=== PATIENT | male | born 1930 | race Caucasian/White ===

== ENCOUNTER 2016-09-08 14:10 | Emergency (ER) | payer OTHER, MEDICAID ==
[~2016-09-08] VITALS: Ht 162.6 cm; Wt 71.2 kg
[~2016-09-08 14:10] MED LIST: ASPIRIN81 M3 PO; DSS100 M1 PO; FERROUS SULFAT325 M1 PO; LEVOTHYROXINE0.05 M1 PO; METFORMIN500 MG PO; METOPROLOL50 MG PO; OXYBUTYNIN5 M1 PO; PROTONIX40 M1 PO; SIMVASTATIN40 M1 PO; VICODIN 5/500 M1 TAB PO; XANAX1 M1 PO
[2016-09-08 14:17] VITALS: BP 119/66
[2016-09-08] MEDS ORDERED: AMARYL2 MG PO (14:30)
--- NOTE | 2016-09-08 16:32 | NUR ---
Patient transferred to bed 1 via wheelchair by tech. RN evaluating patient at bedside.
--- NOTE | 2016-09-08 16:37 | NUR ---
86/M BIB FAMILY FOR HIGH BLOOD SUGAR, WEAKNESS X TODAY AND RIGHT SIDED NECK PAIN 1 MONTH. PT DENIES N/V/D; SKIN IS PINK/WARM/DRY; AAOX4 WITH EVEN AND STEADY GAIT; LUNGS CLEAR BL; HR EVEN AND REGULAR; PT DENIES ANY FEVER, CP, SOB, OR COUGH AT THIS TIME; PATIENT STATES PAIN OF 5/10 AT THIS TIME; VSS; PATIENT POSITIONED FOR COMFORT; HOB ELEVATED; BEDRAILS UP X2; BED DOWN. ER MD MADE AWARE OF PT STATUS.
[2016-09-08] MEDS ORDERED: NACL 0.9% 1,000 ML IV ONE ×2 (17:35→18:35)
[2016-09-08] MEDS ORDERED: INSULIN HUMAN REGULAR 100 UNITS/ML 10 ML VIAL IVP ONE (17:35)
--- NOTE | 2016-09-08 19:20 | NUR ---
Pt report given to VIOLETTA THOMAS. Transfer of care at this time.
[2016-09-08 19:53] VITALS: BP 164/83
--- NOTE | 2016-09-08 19:53 | NUR ---
IV removed, catheter intact and site benign. Applied folded 4x4 gauze and tape to stop bleeding.
--- NOTE | 2016-09-08 19:53 | NUR ---
Patient discharged with v/s stable. Written and verbal after care instructions given and explained. Patient verbalized understanding. Ambulatory with steady gait. All questions addressed prior to discharge. Advised to follow up with PMD.
== END 2016-09-08 19:53 | disposition home or self-care (01) ==
LOC: MED 14:10
DX: E11.65 Type 2 diabetes mellitus with hyperglycemia (principal); R53.81 Other malaise; I10 Essential (primary) hypertension; Z86.73 Personal history of transient ischemic attack (TIA), and cerebral infarction without residual deficits; Z79.82 Long term (current) use of aspirin; Z79.899 Other long term (current) drug therapy
CPT/HCPCS: 36415; 71010; 80053; 82948; 84484; 85025; 93005; 96361; 96374; 99285; J1815; J7030; Q0092

== ENCOUNTER 2016-11-27 16:17 | Inpatient (IN) | payer OTHER, MEDICAID ==
[~2016-11-27] VITALS: Ht 154.9 cm; Wt 76.2 kg
[~2016-11-27 16:17] MED LIST changes: +AMARYL2 MG PO
[2016-11-27 16:26] VITALS: BP 134/66
--- NOTE | 2016-11-27 17:00 | NUR ---
pt required wheel chair assistance out to car---pt unable to get out of car himself---son pulled pt out--pt appeared very pale mildly diaphoretic weak-unable to stand or sit upright . PT STATEd, felt tired--taken to triage by Karen THOMAS . DENIES N/V/D; SKIN IS pale diaphoretic lethargic oriented to name only--- HR EVEN AND tachy; PT DENIES ANY FEVER, CP, SOB, OR COUGH AT THIS TIME; PATIENT STATES PAIN OF 0/10 AT THIS TIME; VSS; PATIENT POSITIONED FOR COMFORT; HOB ELEVATED; BEDRAILS UP X2; BED DOWN. ER MD MADE AWARE OF PT STATUS.
--- NOTE | 2016-11-27 17:04 | NUR ---
PT WHEELCHAIR ASSISTED TO BED 4 AT THIS TIME.
[2016-11-27] MEDS ORDERED: NACL 0.9% 1,000 ML IV ONE (17:40)
[2016-11-27] MEDS ORDERED: NACL 0.9% 500 ML IV ONE (17:40)
[2016-11-27] MEDS ORDERED: MECLIZINE 25 MG TAB PO ONE (17:40)
[2016-11-27] MEDS ORDERED: ACETAMINOPHEN 325 MG TAB PO PRN (19:00)
[2016-11-27] MEDS ORDERED: HYDROcodone/APAP 5/325 MG 1 TAB TAB PO PRN (19:00)
[2016-11-27] MEDS ORDERED: ONDANSETRON 4 MG/2 ML VIAL IVP PRN (19:00)
[2016-11-27] MEDS ORDERED: LORazepam 1 MG TAB PO PRN (19:00)
[2016-11-27] MEDS ORDERED: LEVOFLOXACIN 500 MG/D5W PREMIX 100 ML IV SCH (19:05)
--- NOTE | 2016-11-27 19:06 | NUR ---
pt has maintained conversation with me and his son for lenghty periods--remained a/o x4
--- NOTE | 2016-11-27 19:06 | NUR ---
urine sample dip reported to
[2016-11-27] MEDS ORDERED: DEXTROSE 50% 50 ML SYR IVP PRN (19:15)
[2016-11-27] MEDS ORDERED: MECLIZINE 25 MG TAB PO PRN ×2 (19:15)
--- NOTE | 2016-11-27 19:15 | NUR ---
report received from hortencia, rn
[2016-11-27] MEDS ORDERED: LEVOFLOXACIN 500 MG/D5W PREMIX 100 ML IV ONE (19:21)
[2016-11-27 20:20] VITALS: BP 134/80
[2016-11-27] MEDS: NACL 0.9% 1,000 ML IV SCH (20:20)
--- NOTE | 2016-11-27 20:20 | NUR ---
RECEIVED PT FROM ER VIA KARTHIK, INITIAL ASSESSMENT STARTED, PT IS AAOX4, SLURRED SPEECH NOTED, DENIES PAIN, NO S/S OF SOB/DISTRESS, BREATHING EVEN AND UNLABORED, CLEAR LUNG SOUNDS, ON RA, DENIES CHEST PAIN, SR ON TELE MONITOR, SOFT ABDOMINAL WITH ACTIVE BOWEL SOUNDS, IV SITE TO LEFT FOREARM 20GA, PATENT AND INTACT, RUNNING NS. CONTINENT WITH B&B'S, ABLE TO MOVE ALL EXTREMITIES, BUT STATED GENERALIZED WEAKNESS. AFEBRILE, SKIN IS WARM AND DRY TO TOUCH, NO OPEN WOUND PRESENT. FAMILY MEMBERS AT BEDSIDE, EXPLAINED PLAN OF CARE TO PATIENT AND FAMILY, VERBALIZED UNDERSTANDING, PLACED PATIENT ON SAFE PRECAUTION WITH BED IN LOW POSITION, CALL LIGHT WITHIN REACH. VSS AT THIS TIME, WILL CONTINUE TO MONITOR.
--- NOTE | 2016-11-27 20:20 | NUR ---
Patient will be admitted to care of dr jon. Admited to tele/icu 3 overflow. Will go to room icu 3. Belongings list completed. Report to myron christiansen.
[2016-11-27] MEDS: OXYBUTYNIN 5 MG TAB PO SCH (21:00)
[2016-11-27] MEDS ORDERED: metFORMIN 500 MG TAB PO SCH (21:00)
--- NOTE | 2016-11-27 21:00 | NUR ---
ACCU CHECK PERFORMED WITH RESULT OF 227MG/DL, 4 UNITS HUMALOG GIVEN ORDERED, PT TOLERATED WELL.
[2016-11-27] MEDS: BLOOD GLUCOSE MONITORING 1 DEV DEV FS SCH (21:40)
[2016-11-27] MEDS: METOPROLOL 50 MG TAB PO SCH (21:52)
[2016-11-27] MEDS: INSULIN LISPRO SLIDING SCALE 100 UNITS/ML VIAL SUBQ PRN (21:54)
[2016-11-28] VITALS: BP 111/56
--- NOTE | 2016-11-28 | NUR ---
PT IS ASLEEP QUIETLY IN BED, VSS.
[2016-11-28 04:00] VITALS: BP 143/68
--- NOTE | 2016-11-28 04:00 | NUR ---
PT IS ASLEEP IN BED, NO CHANGE OF CONDITION AT THIS TIME, VSS.
[2016-11-28] MEDS: GLIMEPIRIDE 2 MG TAB PO SCH (06:30)
[2016-11-28] MEDS: NACL 0.9% 1,000 ML IV SCH (07:00)
--- NOTE | 2016-11-28 07:15 | NUR ---
REPORT GIVEN TO WILLIAM ROUSSEAU. FOR CONTINUE OF CARE, PT IS IN STABLE CONDITION AT THIS TIME.
[2016-11-28] MEDS: BLOOD GLUCOSE MONITORING 1 DEV DEV FS SCH ×4 (07:22→21:14)
--- NOTE | 2016-11-28 07:30 | NUR ---
REPORT GIVEN TO HANSEL MCCONNELL.
--- NOTE | 2016-11-28 07:45 | NUR ---
PT ARRIVED FROM ICU, RECEIVED REPORT FROM ICU NURSE. PT IS AAOX4 [place]KIST[place] SPEAKING. ON ROOM AIR, IV TO LEFT WRIST 20G INFUSING WELL. SKIN INTACT. INITIAL ASSESSMENT COMPLETED. ORIENTED PT TO ROOM AND ENVIRONMENT. ALL SAFETY PRECAUTIONS MET. ALL NEEDS ME. CALL LIGHT WITHIN REACH. WILL CONTINUE TO MONITOR.
--- NOTE | 2016-11-28 07:45 | NUR ---
PT AWAKE, ALERT, AND ORIENTED. NO S/S OF RESPIRATORY DISTRESS NOTED. TRANSFERRED PT TO TELE. ALL PERSONAL BELONGINGS WITH PT.
[2016-11-28 08:00] VITALS: BP 145/77
[2016-11-28] MEDS: ASPIRIN 81 MG TAB.CHEW PO SCH (09:02)
[2016-11-28] MEDS: DOCUSATE SODIUM 100 MG GELCAP PO SCH (09:02)
[2016-11-28] MEDS: OXYBUTYNIN 5 MG TAB PO SCH ×2 (09:03→21:14)
[2016-11-28] MEDS: LEVOTHYROXINE 0.05 MG TAB PO SCH (09:03)
[2016-11-28] MEDS: SIMVASTATIN 40 MG TAB PO SCH (09:03)
[2016-11-28] MEDS: METOPROLOL 50 MG TAB PO SCH ×2 (09:03→21:13)
--- NOTE | 2016-11-28 09:04 | NUR ---
DUE MEDICATIONS GIVEN. PT CURRENTLY RESTING IN BED. ALL NEEDS MET. CALL LIGHT WITHIN REACH. WILL CONTINUE TO MONITOR.
--- NOTE | 2016-11-28 10:20 | NUR ---
CM NOTE PER DIETETIC AIDE ROXANA EXT [phone], REVIEWS SHOULD ONLY BE SENT TO [facility]. INITIAL REVIEW SENT TO [facility] FAX# [phone] PH# [phone]
--- NOTE | 2016-11-28 10:29 | NUR ---
PATIENT HAS BEEN SCREENED AND CATEGORIZED HIGH NUTRITION RISK. PATIENT WILL BE SEEN WITHIN 1-2 DAYS OF ADMISSION. 11/28/16-11/29/[address]
--- NOTE | 2016-11-28 11:45 | NUR ---
PT CURRENTLY RESTING IN BED. ALL NEEDS MET. CALL LIGHT WITHIN REACH. WILL CONTINUE TO MONITOR.
[2016-11-28 12:00] VITALS: BP 142/69
[2016-11-28] MEDS: INSULIN LISPRO SLIDING SCALE 100 UNITS/ML VIAL SUBQ PRN ×2 (12:24→21:18)
--- NOTE | 2016-11-28 14:14 | NUR ---
11/28/16 RD INITIAL ASSESSMENT COMPLETED PLEASE REFER TO NUTRITION ASSESSMENT UNDER CARE ACTIVITY FOR ESTIMATED NUTRITIONAL NEEDS. 1. CONTINUE CARDIAC DIET 2. RD TO FOLLOW-UP 3-5 DAYS; MODERATE RISK ARAMIS BRAMBILA RD
--- NOTE | 2016-11-28 14:25 | NUR ---
PT CURRENTLY SLEEPING, AT BEDSIDE, CALL LIGHT WITHIN REACH. WILL CONTINUE TO MONITOR.
--- NOTE | 2016-11-28 14:45 | NUR ---
PER SAURAV GARCIA AT [facility] [phone] PT SHOULD BE ASSIGNED TO [facility] AND SHE HAS NOTIFIED DR MORLEY TO TAKE OVER PTS CARE TOMORROW WHEN HE ROUNDS.
[2016-11-28 16:00] VITALS: BP 127/66
--- NOTE | 2016-11-28 17:25 | NUR ---
PT CURRENTLY AWAKE. VISITING WITH FAMILY MEMBERS. ALL NEEDS MET. CALL LIGHT WITHIN REACH. WILL CONTINUE TO MONITOR.
--- NOTE | 2016-11-28 19:34 | NUR ---
ENDORSED PLAN OF CARE TO NIGHT NURSE, PT IN STABLE CONDITION .
--- NOTE | 2016-11-28 19:36 | NUR ---
RECEIVED PT IN STABLE CONDITION FROM WILLIAM WILL, NO SOB, NO SIGNS OF DISTRESS. VS STABLE ON ROOM AIR. IV TO LT WRIST 20G PATENT, ASYMPTOMATIC, INTACT, IVF RUNNING. PT IS AOX4, KYRGY[place] SPEAKING, AMBULATES WITH ASSIST. SKIN IS INTACT. FAMILY AT BEDSIDE. PT DENIES PAIN AT THIS TIME. PLAN OF CARE DISCUSSED WITH PT. SAFETY MEASURES IN PLACE. CALL LIGHT WITHIN REACH. WILL CONTINUE TO MONITOR.
[2016-11-28 20:00] VITALS: BP 141/74
--- NOTE | 2016-11-28 21:18 | NUR ---
BLOOD SUGAR 219, ADMINISTERED INSULIN PER MD ORDER. PT TOLERATED DUE MEDS WELL. NO SOB, NO SIGNS OF DISTRESS. PT DENIES PAIN AT THIS TIME. IV SITE ASYMPTOMATIC, INTACT, PATENT, IVF RUNNING. PLAN OF CARE DISCUSSED WITH PT. SAFETY MEASURES IN PLACE. CALL LIGHT WITHIN REACH. WILL CONTINUE TO MONITOR.
[2016-11-29] VITALS: BP 145/58
--- NOTE | 2016-11-29 | NUR ---
VS STABLE OB ROOM AIR. PT DENIES PAIN AT THIS TIME. IV SITE ASYMPTOMATIC, INTACT, PATENT, IVF RUNNING. PLAN OF CARE DISCUSSED WITH PT. SAFETY MEASURES IN PLACE. CALL LIGHT WITHIN REACH. WILL CONTINUE TO MONITOR.
--- NOTE | 2016-11-29 02:33 | NUR ---
PT ASLEEP IN BED. NO SOB, NO SIGNS OF DISTRESS. IV SITE ASYMPTOMATIC, INTACT, PATENT, IVF RUNNING. SAFETY MEASURES IN PLACE. CALL LIGHT WITHIN REACH. WILL CONTINUE TO MONITOR.
[2016-11-29 04:00] VITALS: BP 136/56
--- NOTE | 2016-11-29 04:00 | NUR ---
VS STABLE ON ROOM AIR. PT DENIES PAIN AT THIS TIME. IV SITE ASYMPTOMATIC, INTACT, PATENT, IVF RUNNING. PLAN OF CARE DISCUSSED WITH PT. SAFETY MEASURES IN PLACE. CALL LIGHT WITHIN REACH. WILL CONTINUE TO MONITOR
[2016-11-29] MEDS: NACL 0.9% 1,000 ML IV SCH (06:00)
[2016-11-29] MEDS: GLIMEPIRIDE 2 MG TAB PO SCH (06:30)
--- NOTE | 2016-11-29 06:30 | NUR ---
BLOOD SUGAR 105, NO INSULIN NEEDED, HELD AMARYL DUE TO DECREASED GLUCOSE AND POOR APPETITE. NO SOB, NO SIGNS OF DISTRESS. PT DENIES PAIN AT THIS TIME. IV SITE ASYMPTOMATIC, INTACT, PATENT, IVF RUNNING. PLAN OF CARE DISCUSSED WITH PT. SAFETY MEASURES IN PLACE. CALL LIGHT WITHIN REACH. WILL CONTINUE TO MONITOR
[2016-11-29] MEDS: BLOOD GLUCOSE MONITORING 1 DEV DEV FS SCH ×2 (06:35→11:38)
--- NOTE | 2016-11-29 06:55 | NUR ---
MD MACKENZIE VERBALLY MADE AWARE THAT PT NEEDS BLOOD SUGAR CHECKS, INSULIN, AND D50 ORDERS, ALSO MADE AWARE THAT I WAS UNABLE TO MIX AND GIVE POTASSIUM IV ORDER, AND THAT PT DOES NOT HAVE HIS DENTURES AND NEEDS A SOFT DIET. TO SEE PT. Addendum: 11/29/16 at 0658 by Tatiana Cintron RN ENTERED FOR WRONG PT.
--- NOTE | 2016-11-29 07:15 | NUR ---
ENDORSED PT IN STABLE CONDITION TO WILLIAM WILL. ALL NEEDS HAVE BEEN MET AT THIS TIME.
--- NOTE | 2016-11-29 07:15 | NUR ---
RECEIVED REPORT FROM NIGHT NURSE. PT IS AAOX4 MAORI SPEAKING. ON ROOM AIR, IV TO LEFT WRIST 20G INFUSING WELL. SKIN INTACT. INITIAL ASSESSMENT COMPLETED. ALL SAFETY PRECAUTIONS MET. ALL NEEDS ME. CALL LIGHT WITHIN REACH. WILL CONTINUE TO MONITOR.
[2016-11-29 08:00] VITALS: BP 136/70
[2016-11-29] MEDS ORDERED: LEVAQUIN750 MG PO (09:10)
[2016-11-29] MEDS: ASPIRIN 81 MG TAB.CHEW PO SCH (09:12)
[2016-11-29] MEDS: LEVOTHYROXINE 0.05 MG TAB PO SCH (09:13)
[2016-11-29] MEDS: SIMVASTATIN 40 MG TAB PO SCH (09:13)
[2016-11-29] MEDS: OXYBUTYNIN 5 MG TAB PO SCH (09:13)
[2016-11-29] MEDS: METOPROLOL 50 MG TAB PO SCH (09:13)
[2016-11-29] MEDS: DOCUSATE SODIUM 100 MG GELCAP PO SCH (09:13)
--- NOTE | 2016-11-29 09:15 | NUR ---
DUE MEDICATIONS GIVEN, PT CURRENTLY WORKING WIT PT. ALL NEEDS MET. WILL CONTINUE TO MONITOR.
--- NOTE | 2016-11-29 10:21 | NUR ---
CM NOTE CONCURRENT REVIEW SENT TO [facility] FAX# [phone] PH# [phone]
--- NOTE | 2016-11-29 11:45 | NUR ---
DISCUSSED DISCHARGE PLAN WITH PT, PT VERBALIZED UNDERSTANDING.
[2016-11-29 12:00] VITALS: BP 138/78
--- NOTE | 2016-11-29 12:05 | NUR ---
NOTIFIED PT'S LAKIA RIVERS OF PT DISCHARGE, MRS RIVERS VERBALIZED UNDERSTANDING AND STATES THAT SOMEONE SHOULD BE IN TO COOK ROOM SUPERVISOR PT BY 1400.
--- NOTE | 2016-11-29 14:15 | NUR ---
PT SIGNED ALL DISCHARGE, IV REMOVED TIP INTACT, DISCHARGE EDUCATION GIVEN, PRESCRIPTION GIVEN, EDUCATED PT AND FAMILY ON NEW MEDICATION, PT VERBALIZED UNDERSTANDING, ALL PERSONAL BELONGINGS WITH PT, DAUGHTER WILL BE TAKING HIM HOME.
--- NOTE | 2016-11-29 14:22 | NUR ---
PT WAS WALKED OUT TO FRONT LOBBY ALONGSIDE DAUGHTER AN , PT IN IN STABLE CONDITION.
[2016-11-29] MEDS ORDERED: LEVOFLOXACIN 250 MG/D5 PREMIX 50 ML IV SCH (21:00)
== END 2016-11-29 14:28 | disposition home or self-care (01) | DRG 682 ==
LOC: MED 16:17 → MIC 18:54 → MTU 11-28 07:45
PROVIDERS: ADMIT Hospitalist; ATTEND Hospitalist
DX: N17.0 Acute kidney failure with tubular necrosis (principal); I50.43 Acute on chronic combined systolic (congestive) and diastolic (congestive) heart failure; N39.0 Urinary tract infection, site not specified; E44.0 Moderate protein-calorie malnutrition; G90.9 Disorder of the autonomic nervous system, unspecified; E03.9 Hypothyroidism, unspecified; E78.5 Hyperlipidemia, unspecified; E66.9 Obesity, unspecified; D64.9 Anemia, unspecified; E11.22 Type 2 diabetes mellitus with diabetic chronic kidney disease; K21.9 Gastro-esophageal reflux disease without esophagitis; M19.90 Unspecified osteoarthritis, unspecified site; N18.9 Chronic kidney disease, unspecified; N40.0 Benign prostatic hyperplasia without lower urinary tract symptoms; Z68.31 Body mass index [BMI] 31.0-31.9, adult; Z71.3 Dietary counseling and surveillance; Z87.891 Personal history of nicotine dependence; Z86.73 Personal history of transient ischemic attack (TIA), and cerebral infarction without residual deficits; Z95.1 Presence of aortocoronary bypass graft; Z79.82 Long term (current) use of aspirin; Z79.899 Other long term (current) drug therapy